=== PATIENT | female | born 1985 | race Caucasian/White ===

== ENCOUNTER 2017-02-22 16:07 | Emergency (ER) | payer MEDICAID ==
[~2017-02-22] VITALS: Ht 149.9 cm; Wt 90.5 kg
[~2017-02-22 16:07] MED LIST: BIRTH CONTROL PO; DSS100 PO
[2017-02-22] MEDS ORDERED: ALBUTEROL SULFATE 2.5 MG/0.5 ML NEB SOLUTION NEB ONE (16:15)
[2017-02-22 19:51] VITALS: BP 127/73
== END 2017-02-22 19:52 | disposition home or self-care (01) ==
LOC: EMS 16:08
DX: J45.909 Unspecified asthma, uncomplicated (principal)
CPT/HCPCS: 71010; 93005; 94640; 99284; J7613

== ENCOUNTER 2017-05-19 17:26 | Emergency (ER) | payer MEDICAID ==
[~2017-05-19] VITALS: Ht 154.9 cm; Wt 81.8 kg
[2017-05-19] MEDS ORDERED: LORA10TA7 PO (17:53)
[2017-05-19] MEDS ORDERED: PredniSONE 20 MG TABLET PO ONE (19:00)
[2017-05-19] MEDS ORDERED: DiphenhydrAMINE HCL 50 MG/ML VIAL IM ONE (19:00)
[2017-05-19 19:22] VITALS: BP 122/79
== END 2017-05-19 19:22 | disposition home or self-care (01) ==
LOC: EMS 17:31
DX: L23.9 Allergic contact dermatitis, unspecified cause (principal)
CPT/HCPCS: 96372; 99283; J1200; J7512

== ENCOUNTER 2017-12-26 19:54 | Emergency (ER) | payer MEDICAID ==
[~2017-12-26] VITALS: Ht 144.8 cm; Wt 85.0 kg
[~2017-12-26 19:54] MED LIST changes: -BIRTH CONTROL PO; -DSS100 PO; +LORA10TA7 PO
[2017-12-26 20:25] VITALS: BP 157/94
== END 2017-12-26 21:49 | disposition left against medical advice (07) ==
LOC: EMS 19:59
DX: N93.9 Abnormal uterine and vaginal bleeding, unspecified (principal); Z53.21 Procedure and treatment not carried out due to patient leaving prior to being seen by health care provider

== ENCOUNTER 2018-03-14 18:35 | Emergency (ER) | payer MEDICAID ==
[~2018-03-14] VITALS: Ht 142.2 cm; Wt 83.2 kg
[2018-03-14] MEDS ORDERED: SULFAMETHOX/TRIMETH DS 800-160 MG/TABLET PO ONE (21:15)
[2018-03-14] MEDS ORDERED: TraMADol HCL 50 MG TABLET PO ONE (21:30)
[2018-03-14 22:28] VITALS: BP 133/79
== END 2018-03-14 22:29 | disposition home or self-care (01) ==
LOC: EMS 18:36
DX: N76.0 Acute vaginitis (principal); R03.0 Elevated blood-pressure reading, without diagnosis of hypertension; Z87.442 Personal history of urinary calculi
CPT/HCPCS: 99283

== ENCOUNTER 2018-03-30 17:08 | Emergency (ER) | payer MEDICAID ==
[~2018-03-30] VITALS: Ht 144.8 cm; Wt 83.0 kg
[2018-03-30] MEDS ORDERED: ALBU8HFA IH (17:23)
[2018-03-30] MEDS ORDERED: METH4TAB16 PO (17:23)
[2018-03-30] MEDS ORDERED: ACETAMINOPHEN 500 MG TABLET PO ONE (18:00)
[2018-03-30] MEDS ORDERED: IBUPROFEN 600 MG TABLET PO ONE (18:00)
[2018-03-30] MEDS ORDERED: AMOX TR/POT CLAV 875 MG/125 MG TABLET PO ONE (18:00)
[2018-03-30 20:17] VITALS: BP 127/71
== END 2018-03-30 20:19 | disposition home or self-care (01) ==
LOC: EMS 17:09
DX: H66.93 Otitis media, unspecified, bilateral (principal)
CPT/HCPCS: 99284

== ENCOUNTER 2018-07-18 19:11 | Emergency (ER) | payer MEDICAID ==
[~2018-07-18] VITALS: Ht 142.2 cm; Wt 80.0 kg
[~2018-07-18 19:11] MED LIST changes: +ALBU8HFA IH; -LORA10TA7 PO; +METH4TAB16 PO
[2018-07-18] MEDS ORDERED: SULF1TAB3 PO (19:48)
[2018-07-18 19:59] LABS: GLUCOSE,POINT OF CARE 434 MG/DL (70-110)
[2018-07-18 21:01] LABS: APPEARANCE,URINE CLEAR (CLEAR); BILIRUBIN,URINE NEGATIVE (NEGATIVE); GLUCOSE, URINE (UA) >=1000 mg/dL (NEGATIVE); KETONES,URINE NEGATIVE (NEGATIVE); LEUKOCYTE ESTERASE ,URINE NEGATIVE (NEGATIVE); NITRATE,URINE NEGATIVE (NEGATIVE); OCCULT BLOOD,URINE NEGATIVE (NEGATIVE); PROTEIN,URINE NEGATIVE (NEGATIVE); UROBILINOGEN,URINE 0.2 mg/dL (<=1.0)
[2018-07-18 21:07] LABS: BACTERIA,URINE Rare /HPF (None Seen); SQUAMOUS EPITHELIAL CELL,UR Few /LPF (None Seen)
[2018-07-18] MEDS: SODIUM CHLORIDE 0.9% 1,000 ML IV ONE ×2 (21:08→22:20)
[2018-07-18 21:53] LABS: GLUCOSE,POINT OF CARE 282 MG/DL (70-110)
[2018-07-18] MEDS: MetFORMIN HCL 500 MG TABLET PO ONE (22:20)
[2018-07-18 23:19] LABS: GLUCOSE,POINT OF CARE 282 MG/DL (70-110)
[2018-07-18] MEDS: INSULIN REGULAR, HUMAN 100 UNITS/ML IVP ONE (23:29)
[2018-07-19 00:04] LABS: GLUCOSE,POINT OF CARE 254 MG/DL (70-110)
[2018-07-19 00:05] VITALS: BP 130/85
== END 2018-07-19 00:09 | disposition home or self-care (01) ==
LOC: EMS 19:14
DX: N76.4 Abscess of vulva (principal); E11.65 Type 2 diabetes mellitus with hyperglycemia
CPT/HCPCS: 81001; 82962; 84703; 96361; 96374; 99284; J1815; J7030

== ENCOUNTER 2018-08-16 19:08 | Emergency (ER) | payer MEDICAID ==
[~2018-08-16] VITALS: Ht 144.8 cm; Wt 80.9 kg
[~2018-08-16 19:08] MED LIST changes: -METH4TAB16 PO; +SULF1TAB3 PO
[2018-08-16] MEDS ORDERED: METF-960 PO (19:25)
[2018-08-16 19:28] LABS: GLUCOSE,POINT OF CARE 157 MG/DL (70-110)
[2018-08-16] MEDS ORDERED: DEPOP150I IM (19:28)
[2018-08-16 19:53] LABS: APPEARANCE,URINE CLEAR (CLEAR); BILIRUBIN,URINE NEGATIVE (NEGATIVE); GLUCOSE, URINE (UA) NEGATIVE (NEGATIVE); KETONES,URINE NEGATIVE (NEGATIVE); LEUKOCYTE ESTERASE ,URINE SMALL (NEGATIVE); NITRATE,URINE NEGATIVE (NEGATIVE); OCCULT BLOOD,URINE NEGATIVE (NEGATIVE); PROTEIN,URINE NEGATIVE (NEGATIVE)
[2018-08-16] MEDS ORDERED: BARIUM SULFATE 0.1% SUSPENSION 450 ML BOTTLE PO ONE (20:15)
[2018-08-16 20:21] LABS: RBC,URINE None Seen /HPF (0-2)
[2018-08-16 20:22] LABS: BACTERIA,URINE Few /HPF (None Seen); SQUAMOUS EPITHELIAL CELL,UR Few /LPF (None Seen)
[2018-08-16] MEDS ORDERED: CEPHALEXIN MONOHYDRATE 500 MG CAPSULE PO ONE (20:45)
[2018-08-16 20:48] VITALS: BP 130/80
== END 2018-08-16 20:49 | disposition home or self-care (01) ==
LOC: EMS 19:09
DX: N39.0 Urinary tract infection, site not specified (principal); B37.3 Candidiasis of vulva and vagina; E11.65 Type 2 diabetes mellitus with hyperglycemia; Z86.61 Personal history of infections of the central nervous system; Z79.4 Long term (current) use of insulin; Z79.899 Other long term (current) drug therapy; Z98.890 Other specified postprocedural states
CPT/HCPCS: 87086; 99284

== ENCOUNTER 2018-12-19 16:10 | Emergency (ER) | payer MEDICAID ==
[~2018-12-19] VITALS: Ht 162.6 cm; Wt 86.4 kg
[~2018-12-19 16:10] MED LIST changes: +DEPOP150I IM; +METF-960 PO; -SULF1TAB3 PO
[2018-12-19 16:44] LABS: GLUCOSE,POINT OF CARE 151 MG/DL (70-110)
[2018-12-19] MEDS ORDERED: KETOROLAC TROMETHAMINE 30 MG/ML VIAL IM ONE (19:30)
[2018-12-19] MEDS ORDERED: OXYMETAZOLINE HCL 0.05% 15 ML NASAL SPRAY NASAL ONE (19:45)
[2018-12-19] MEDS ORDERED: ALBUTEROL SULFATE HFA 90 MCG/PUFF 8 GM INHALER IH ONE ×2 (19:45→21:15)
[2018-12-19] MEDS ORDERED: BENZONATATE 100 MG CAPSULE PO ONE (19:45)
[2018-12-19 20:18] LABS: BASOPHILS % (AUTO) 0.8 % (0.0-2.0); EOSINOPHILS % (AUTO) 3.4 % (1.0-6.0); HEMATOCRIT 43.7 % (36-46); LYMPHOCYTES # (AUTO) 3.4 K/uL (1.0-4.8); MEAN CORPUSCULAR HEMOGLOBIN 30.4 pg (26.0-34.0); MEAN CORPUSCULAR HGB CONC 34.4 G/dL (31.0-37.0); MEAN CORPUSCULAR VOLUME 88 fL (80-100); MONOCYTES # (AUTO) 1.3 K/uL (0.1-1.0); MONOCYTES % (AUTO) 9.8 % (2.0-9.0); NEUTROPHILS # (AUTO) 7.8 K/uL (1.8-7.7); PLATELET COUNT (AUTO) 347 K/uL (150-450); RED BLOOD CELL COUNT(AUTO) 4.94 MIL/uL (4.00-5.20); RED CELL DISTRIBUTION WIDTH 12.5 % (11.5-14.5)
[2018-12-19 20:25] LABS: ANION GAP 10 mmol/L (8-16); CALCIUM, TOTAL 8.9 mg/dL (8.8-10.5); CARBON DIOXIDE 27 mmol/L (22-29); CHLORIDE 101 mmol/L (98-107); CREATININE 0.58 mg/dL (0.60-1.30); GLOMERULAR FILTR. RATE CALC > 60 mL/min (>60); GLUCOSE,RANDOM 98 mg/dL (70-110); POTASSIUM 3.6 mmol/L (3.5-5.1); SODIUM SERUM 138 mmol/L (136-145); UREA NITROGEN, BLOOD 12 mg/dL (7-18)
[2018-12-19 20:31] LABS: ALANINE AMINOTRANSFERASE 34 U/L (12-78); ALBUMIN 3.6 g/dL (3.4-5.0); ALKALINE PHOSPHATASE 114 U/L (46-116); ASPARTATE AMINOTRANSFERASE 21 U/L (15-37); BILIRUBIN,TOTAL 0.3 mg/dL (0.1-1.0); TOTAL PROTEIN, SERUM 7.4 g/dL (6.4-8.2)
[2018-12-19 21:04] VITALS: BP 111/64
== END 2018-12-19 21:34 | disposition home or self-care (01) ==
LOC: EMS 16:10
DX: J40 Bronchitis, not specified as acute or chronic (principal); R51 Headache; E11.9 Type 2 diabetes mellitus without complications; Z79.84 Long term (current) use of oral hypoglycemic drugs
CPT/HCPCS: 36415; 71046; 80053; 81025; 82962; 84484; 85025; 93005; 94640; 96372; 99284; J1885; J3535

== ENCOUNTER 2019-03-13 10:16 | Emergency (ER) | payer MEDICAID ==
[~2019-03-13] VITALS: Ht 142.2 cm; Wt 85.0 kg
[2019-03-13 10:30] LABS: GLUCOSE,POINT OF CARE 152 MG/DL (70-110)
[2019-03-13 11:46] VITALS: BP 127/69
== END 2019-03-13 11:46 | disposition home or self-care (01) ==
LOC: EMS 10:16
DX: L02.214 Cutaneous abscess of groin (principal); E11.9 Type 2 diabetes mellitus without complications; Z79.84 Long term (current) use of oral hypoglycemic drugs

== ENCOUNTER 2019-08-02 10:14 | Emergency (ER) | payer MEDICAID ==
[~2019-08-02] VITALS: Ht 144.8 cm; Wt 84.1 kg
[2019-08-02] MEDS ORDERED: SODIUM CHLORIDE 0.9% 1,000 ML IV ONE (11:30)
[2019-08-02 11:40] LABS: BASOPHILS % (AUTO) 0.5 % (0.0-2.0); EOSINOPHILS % (AUTO) 0.5 % (1.0-6.0); HEMATOCRIT 43.3 % (36-46); HEMOGLOBIN 14.6 g/dL (12.0-16.0); LYMPHOCYTES # (AUTO) 1.2 K/uL (1.0-4.8); LYMPHOCYTES % (AUTO) 9.1 % (22.0-44.0); MEAN CORPUSCULAR HEMOGLOBIN 30.7 pg (26.0-34.0); MEAN CORPUSCULAR HGB CONC 33.8 G/dL (31.0-37.0); MEAN CORPUSCULAR VOLUME 91 fL (80-100); MONOCYTES # (AUTO) 0.9 K/uL (0.1-1.0); MONOCYTES % (AUTO) 7.1 % (2.0-9.0); NEUTROPHILS # (AUTO) 10.9 K/uL (1.8-7.7); NEUTROPHILS % (AUTO) 82.8 % (40.0-70.0); PLATELET COUNT (AUTO) 278 K/uL (150-450); RED BLOOD CELL COUNT(AUTO) 4.77 MIL/uL (4.00-5.20); RED CELL DISTRIBUTION WIDTH 13.1 % (11.5-14.5)
[2019-08-02 12:10] LABS: ALANINE AMINOTRANSFERASE 19 U/L (12-78); ALBUMIN 3.9 g/dL (3.4-5.0); ALKALINE PHOSPHATASE 112 U/L (46-116); ANION GAP 12 mmol/L (8-16); ASPARTATE AMINOTRANSFERASE 15 U/L (15-37); BILIRUBIN,TOTAL 0.5 mg/dL (0.1-1.0); CARBON DIOXIDE 24 mmol/L (22-29); CHLORIDE 102 mmol/L (98-107); GLOMERULAR FILTR. RATE CALC > 60 mL/min (>60); GLUCOSE,RANDOM 172 mg/dL (70-110); HCG,QUANTITATIVE < 1 mIU/mL (0-6); POTASSIUM 3.3 mmol/L (3.5-5.1); SODIUM SERUM 138 mmol/L (136-145); TOTAL PROTEIN, SERUM 7.4 g/dL (6.4-8.2)
[2019-08-02 12:25] LABS: APPEARANCE,URINE CLEAR (CLEAR); BILIRUBIN,URINE NEGATIVE (NEGATIVE); GLUCOSE, URINE (UA) 500 mg/dL (NEGATIVE); KETONES,URINE NEGATIVE (NEGATIVE); LEUKOCYTE ESTERASE ,URINE NEGATIVE (NEGATIVE); NITRATE,URINE NEGATIVE (NEGATIVE); OCCULT BLOOD,URINE TRACE (NEGATIVE); PROTEIN,URINE NEGATIVE (NEGATIVE)
[2019-08-02 12:35] LABS: BACTERIA,URINE None Seen /HPF (None Seen); SQUAMOUS EPITHELIAL CELL,UR Few /LPF (None Seen); WBC,URINE 0-2 /HPF (0-5)
[2019-08-02 12:38] LABS: UREA NITROGEN, BLOOD 6 mg/dL (7-18)
[2019-08-02 12:49] LABS: INFLUENZA TYPE A NEGATIVE FOR TYPE A (NEGATIVE); INFLUENZA TYPE B NEGATIVE FOR TYPE B (NEGATIVE); RAPID GROUP A STREP POSITIVE (NEGATIVE)
[2019-08-02] MEDS ORDERED: ACYCLOVIR IV ONE (13:00)
[2019-08-02] MEDS ORDERED: DEXTROSE 5% IV ONE (13:00)
[2019-08-02] MEDS ORDERED: CefTRIAXone SODIUM 2 GM in DEXTROSE 5%-WATER 50 ML IV ONE (13:00)
[2019-08-02] MEDS ORDERED: VANCOMYCIN HCL 1.5 GM in DEXTROSE 5%-WATER 250 ML IV ONE (13:00)
[2019-08-02] MEDS ORDERED: WATER IV ONE (13:00)
[2019-08-02] MEDS ORDERED: MORPHINE SULFATE 4 MG/ML SYRINGE IVP ONE (13:00)
[2019-08-02 14:41] LABS: GLUCOSE,POINT OF CARE 98 MG/DL (70-110)
[2019-08-02 14:59] LABS: GLUCOSE, CSF 85 mg/dL (50-80); TOTAL PROTEIN, CSF 31 mg/dL (15-45)
[2019-08-02 16:25] LABS: APPEARANCE,CSF CLEAR (CLEAR); COLOR,CSF COLORLESS (COLORLESS); CSF TUBE NUMBER 1; LYMPHOCYTES1,CSF 92 %; MONOCYTES1,CSF 5 %; NEUTROPHILS1,CSF 3 %
[2019-08-02 16:26] LABS: APPEARANCE2,CSF CLEAR (CLEAR); COLOR2,CSF COLORLESS (COLORLESS); CSF 2ND TUBE NUMBER 4; LYMPHOCYTES2,CSF 81 %; MONOCYTES2,CSF 19 %; NEUTROPHILS2,CSF 0 %; OTHER CELLS,CSF 0; OTHER CELLS,CSF 2ND 0
[2019-08-02 18:15] VITALS: BP 124/76
[2019-08-10 08:06] LABS: RUBEOLA (MEASLES) IGG CSF <5.0 AU/mL (<=16.4); RUBEOLA (MEASLES) IGM CSF 0.32 AU (0.00-0.79); WEST NILE VIRUS IGG CSF 0.07 IV (<=1.29)
== END 2019-08-02 18:29 | disposition home or self-care (01) ==
LOC: EMS 10:15
DX: J02.0 Streptococcal pharyngitis (principal); R51 Headache; R11.2 Nausea with vomiting, unspecified; J45.909 Unspecified asthma, uncomplicated; E11.9 Type 2 diabetes mellitus without complications; Z79.84 Long term (current) use of oral hypoglycemic drugs
CPT/HCPCS: 36415; 62270; 70450; 80053; 81001; 82945; 82962; 83605; 84157; 84702; 85025; 86694; 86735; 86765; 86787; 86788; 86789; 87040; 87070; 87205; 87430; 87529; 87804; 89051; 96361; 96365; 96366; 96367; 96375; 99285; J0133; J0696; J2270; J3370; J7060 ×3

== ENCOUNTER 2019-11-25 14:30 | Emergency (ER) | payer MEDICAID ==
[~2019-11-25] VITALS: Ht 137.2 cm; Wt 86.4 kg
[~2019-11-25 14:30] MED LIST changes: -ALBU8HFA IH
[2019-11-25 15:06] LABS: GLUCOSE,POINT OF CARE 170 MG/DL (70-110)
[2019-11-25 16:27] LABS: INFLUENZA TYPE A POSITIVE FOR TYPE A (NEGATIVE); INFLUENZA TYPE B NEGATIVE FOR TYPE B (NEGATIVE)
[2019-11-25 18:00] VITALS: BP 127/81
== END 2019-11-25 18:40 | disposition home or self-care (01) ==
LOC: EMS 14:31
DX: J10.1 Influenza due to other identified influenza virus with other respiratory manifestations (principal); M79.10 Myalgia, unspecified site; J45.909 Unspecified asthma, uncomplicated; E11.9 Type 2 diabetes mellitus without complications; Z79.84 Long term (current) use of oral hypoglycemic drugs
CPT/HCPCS: 87804

== ENCOUNTER 2020-10-10 17:02 | Emergency (ER) | payer MEDICAID ==
[~2020-10-10] VITALS: Ht 142.2 cm; Wt 84.1 kg
[2020-10-10] MEDS ORDERED: METF-960 PO (17:08)
[2020-10-10] MEDS ORDERED: IBUP-1506 PO (17:08)
[2020-10-10 19:15] VITALS: BP 131/85
== END 2020-10-10 19:30 | disposition home or self-care (01) ==
LOC: EMS 17:02
DX: M25.562 Pain in left knee (principal); J45.909 Unspecified asthma, uncomplicated; E11.9 Type 2 diabetes mellitus without complications; F12.90 Cannabis use, unspecified, uncomplicated; Z79.84 Long term (current) use of oral hypoglycemic drugs

== ENCOUNTER 2021-07-06 16:33 | Emergency (ER) | payer MEDICAID ==
[~2021-07-06] VITALS: Ht 157.5 cm; Wt 72.7 kg
[~2021-07-06 16:33] MED LIST changes: +IBUP-1506 PO
[2021-07-06 19:35] LABS: BASOPHILS % (AUTO) 0.5 % (0.0-2.0); EOSINOPHILS % (AUTO) 1.6 % (1.0-6.0); HEMATOCRIT 44.7 % (36-46); HEMOGLOBIN 14.9 g/dL (12.0-16.0); LYMPHOCYTES # (AUTO) 1.6 K/uL (1.0-4.8); LYMPHOCYTES % (AUTO) 25.6 % (22.0-44.0); MEAN CORPUSCULAR HEMOGLOBIN 30.7 pg (26.0-34.0); MEAN CORPUSCULAR HGB CONC 33.5 G/dL (31.0-37.0); MEAN CORPUSCULAR VOLUME 92 fL (80-100); MONOCYTES # (AUTO) 0.6 K/uL (0.1-1.0); MONOCYTES % (AUTO) 9.9 % (2.0-9.0); NEUTROPHILS # (AUTO) 3.9 K/uL (1.8-7.7); NEUTROPHILS % (AUTO) 62.4 % (40.0-70.0); PLATELET COUNT (AUTO) 266 K/uL (150-450); RED BLOOD CELL COUNT(AUTO) 4.87 MIL/uL (4.00-5.20); RED CELL DISTRIBUTION WIDTH 12.9 % (11.5-14.5)
[2021-07-06 19:50] LABS: ANION GAP 6 mmol/L (8-16); CALCIUM, TOTAL 8.4 mg/dL (8.8-10.5); CARBON DIOXIDE 26 mmol/L (22-29); CHLORIDE 106 mmol/L (98-107); GLOMERULAR FILTR. RATE CALC > 60 mL/min (>60); GLUCOSE,RANDOM 117 mg/dL (70-110); POTASSIUM 3.7 mmol/L (3.5-5.1); SODIUM SERUM 138 mmol/L (136-145); UREA NITROGEN, BLOOD 6 mg/dL (7-18)
[2021-07-06 20:02] LABS: ALANINE AMINOTRANSFERASE 30 U/L (12-78); ALBUMIN 3.5 g/dL (3.4-5.0); ALKALINE PHOSPHATASE 97 U/L (46-116); ASPARTATE AMINOTRANSFERASE 18 U/L (15-37); BILIRUBIN,TOTAL 0.2 mg/dL (0.1-1.0); HCG,QUANTITATIVE < 1 mIU/mL (0-6); LIPASE 81 U/L (73-393); TOTAL PROTEIN, SERUM 7.2 g/dL (6.4-8.2)
[2021-07-06 20:14] LABS: APPEARANCE,URINE CLEAR (CLEAR); BILIRUBIN,URINE NEGATIVE (NEGATIVE); GLUCOSE, URINE (UA) NEGATIVE (NEGATIVE); KETONES,URINE NEGATIVE (NEGATIVE); LEUKOCYTE ESTERASE ,URINE NEGATIVE (NEGATIVE); NITRATE,URINE NEGATIVE (NEGATIVE); OCCULT BLOOD,URINE MODERATE (NEGATIVE); PROTEIN,URINE NEGATIVE (NEGATIVE); UROBILINOGEN,URINE 0.2 mg/dL (<=1.0)
[2021-07-06 20:26] LABS: BACTERIA,URINE None Seen /HPF (None Seen); SQUAMOUS EPITHELIAL CELL,UR Few /LPF (None Seen); WBC,URINE 0-2 /HPF (0-5)
[2021-07-06 20:45] VITALS: BP 116/75
== END 2021-07-06 22:36 | disposition home or self-care (01) ==
LOC: EMS 16:33
DX: S39.012A Strain of muscle, fascia and tendon of lower back, initial encounter (principal); R10.9 Unspecified abdominal pain; E11.9 Type 2 diabetes mellitus without complications; J45.909 Unspecified asthma, uncomplicated; Z87.442 Personal history of urinary calculi; Z87.440 Personal history of urinary (tract) infections; Z79.84 Long term (current) use of oral hypoglycemic drugs; X58.XXXA Exposure to other specified factors, initial encounter; Y93.89 Activity, other specified; Y92.89 Other specified places as the place of occurrence of the external cause; Y99.8 Other external cause status
CPT/HCPCS: 74176; 80053; 81001; 83690; 84702; 85025; 99284

== ENCOUNTER 2021-07-22 08:42 | Emergency (ER) | payer MEDICAID ==
[~2021-07-22] VITALS: Ht 152.4 cm; Wt 81.0 kg
[2021-07-22 09:32] LABS: COVID AG,FIA SOURCE NASOPHARYNGEAL
[2021-07-22 09:37] LABS: BASOPHILS % (AUTO) 0.5 % (0.0-2.0); EOSINOPHILS % (AUTO) 2.7 % (1.0-6.0); HEMATOCRIT 42.5 % (36-46); HEMOGLOBIN 14.3 g/dL (12.0-16.0); LYMPHOCYTES # (AUTO) 1.5 K/uL (1.0-4.8); LYMPHOCYTES % (AUTO) 28.7 % (22.0-44.0); MEAN CORPUSCULAR HEMOGLOBIN 30.6 pg (26.0-34.0); MEAN CORPUSCULAR HGB CONC 33.6 G/dL (31.0-37.0); MEAN CORPUSCULAR VOLUME 91 fL (80-100); MONOCYTES # (AUTO) 0.4 K/uL (0.1-1.0); MONOCYTES % (AUTO) 7.9 % (2.0-9.0); NEUTROPHILS # (AUTO) 3.2 K/uL (1.8-7.7); NEUTROPHILS % (AUTO) 60.2 % (40.0-70.0); PLATELET COUNT (AUTO) 321 K/uL (150-450); RED BLOOD CELL COUNT(AUTO) 4.66 MIL/uL (4.00-5.20); RED CELL DISTRIBUTION WIDTH 13.1 % (11.5-14.5)
[2021-07-22 09:44] LABS: ANION GAP 8 mmol/L (8-16); CALCIUM, TOTAL 8.6 mg/dL (8.8-10.5); CARBON DIOXIDE 27 mmol/L (22-29); CHLORIDE 105 mmol/L (98-107); CREATININE 0.65 mg/dL (0.60-1.30); GLOMERULAR FILTR. RATE CALC > 60 mL/min (>60); GLUCOSE,RANDOM 171 mg/dL (70-110); POTASSIUM 3.6 mmol/L (3.5-5.1); SODIUM SERUM 140 mmol/L (136-145); UREA NITROGEN, BLOOD 6 mg/dL (7-18)
[2021-07-22] MEDS ORDERED: BENZONATATE 100 MG CAPSULE PO ONE (09:45)
[2021-07-22] MEDS ORDERED: ACETAMINOPHEN 500 MG TABLET PO ONE (09:45)
[2021-07-22 09:49] LABS: B-TYPE NATRIURETIC PEPTIDE 8 pg/mL (0-100)
[2021-07-22 10:22] LABS: ALANINE AMINOTRANSFERASE 25 U/L (12-78); ALBUMIN 3.5 g/dL (3.4-5.0); ALKALINE PHOSPHATASE 97 U/L (46-116); ASPARTATE AMINOTRANSFERASE 19 U/L (15-37); BILIRUBIN,TOTAL 0.3 mg/dL (0.1-1.0); CREATINE KINASE, TOTAL ONLY 42 U/L (26-192); HCG,QUANTITATIVE < 1 mIU/mL (0-6); TOTAL PROTEIN, SERUM 7.4 g/dL (6.4-8.2)
[2021-07-22 10:35] LABS: INFLUENZA TYPE A NEGATIVE FOR TYPE A (NEGATIVE); INFLUENZA TYPE B NEGATIVE FOR TYPE B (NEGATIVE)
[2021-07-22 10:45] VITALS: BP 141/78
== END 2021-07-22 11:01 | disposition home or self-care (01) ==
LOC: EMS 08:44
DX: U07.1 COVID-19 (principal); J45.909 Unspecified asthma, uncomplicated; E11.9 Type 2 diabetes mellitus without complications; F12.90 Cannabis use, unspecified, uncomplicated; Z79.84 Long term (current) use of oral hypoglycemic drugs
CPT/HCPCS: 71045; 80053; 82550; 82962; 83880; 84484; 84702; 85025; 87804; 93005; 99285; 36415-L1; 36415-TC

== ENCOUNTER 2022-01-20 16:15 | Emergency (ER) | payer MEDICAID ==
[~2022-01-20] VITALS: Ht 154.9 cm; Wt 79.5 kg
[~2022-01-20 16:15] MED LIST changes: +METF-1211 PO; -METF-960 PO
[2022-01-20] MEDS ORDERED: KETOROLAC TROMETHAMINE 30 MG/ML VIAL IM ONE (18:30)
[2022-01-20 21:05] VITALS: BP 143/85
[2022-01-20] MEDS ORDERED: METH-659 PO (21:05)
== END 2022-01-20 21:28 | disposition home or self-care (01) ==
LOC: EMS 16:31
DX: M54.2 Cervicalgia (principal); R20.0 Anesthesia of skin
CPT/HCPCS: 72125; 96372; 99284; J1885

== ENCOUNTER 2022-07-16 16:40 | Emergency (ER) | payer MEDICAID ==
[~2022-07-16 16:40] MED LIST changes: -DEPOP150I IM; +MEDR150V13 IM; +METH-659 PO
== END 2022-07-16 16:46 | disposition left against medical advice (07) ==
LOC: EMS 16:40
DX: Z53.21 Procedure and treatment not carried out due to patient leaving prior to being seen by health care provider (principal)

== ENCOUNTER 2023-12-16 13:57 | Emergency (ER) | payer MEDICAID, OTHER ==
[~2023-12-16] VITALS: Ht 139.7 cm; Wt 81.8 kg
[2023-12-16 14:01] VITALS: TEMP 98.2
[2023-12-16 14:24] LABS: COVID AG,FIA SOURCE NASAL SWAB
[2023-12-16 14:36] LABS: BASOPHILS % (AUTO) 0.2 % (0.0-2.0); HEMATOCRIT 43.5 % (36-46); HEMOGLOBIN 14.7 g/dL (12.0-16.0); LYMPHOCYTES # (AUTO) 1.2 K/uL (1.0-4.8); LYMPHOCYTES % (AUTO) 12.9 % (22.0-44.0); MEAN CORPUSCULAR HEMOGLOBIN 31.5 pg (26.0-34.0); MEAN CORPUSCULAR HGB CONC 33.9 G/dL (31.0-37.0); MEAN CORPUSCULAR VOLUME 93 fL (80-100); MONOCYTES # (AUTO) 0.7 K/uL (0.1-1.0); MONOCYTES % (AUTO) 7.7 % (2.0-9.0); NEUTROPHILS # (AUTO) 7.3 K/uL (1.8-7.7); NEUTROPHILS % (AUTO) 77.2 % (40.0-70.0); PLATELET COUNT (AUTO) 305 K/uL (150-450); RED BLOOD CELL COUNT(AUTO) 4.69 MIL/uL (4.00-5.20); WHITE BLOOD COUNT (AUTO) 9.5 K/uL (4.5-11.0)
[2023-12-16 14:40] LABS: APPEARANCE,URINE CLEAR (CLEAR); BILIRUBIN,URINE NEGATIVE (NEGATIVE); COLOR,URINE YELLOW (YELLOW); GLUCOSE, URINE (UA) NEGATIVE (NEGATIVE); KETONES,URINE NEGATIVE (NEGATIVE); LEUKOCYTE ESTERASE ,URINE NEGATIVE (NEGATIVE); NITRATE,URINE NEGATIVE (NEGATIVE); OCCULT BLOOD,URINE MODERATE (NEGATIVE); PH,URINE 5.5 (5.0-8.0); PROTEIN,URINE TRACE mg/dL (NEGATIVE); SPECIFIC GRAVITIY, URINE 1.028 (1.003-1.030); UROBILINOGEN,URINE <=1.0 mg/dL (<=1.0)
[2023-12-16 14:43] LABS: SARS-COV2 (COVID) ANTIGEN,FIA Negative (Negative)
[2023-12-16 14:45] LABS: INFLUENZA TYPE A NEGATIVE FOR TYPE A (NEGATIVE); INFLUENZA TYPE B NEGATIVE FOR TYPE B (NEGATIVE)
[2023-12-16 14:54] LABS: BACTERIA,URINE None Seen /HPF (None Seen); SQUAMOUS EPITHELIAL CELL,UR Few /LPF (None Seen); WBC,URINE None Seen /HPF (0-5)
[2023-12-16 14:55] LABS: ANION GAP 8 mmol/L (8-16); CALCIUM, TOTAL 8.8 mg/dL (8.8-10.5); CARBON DIOXIDE 27 mmol/L (22-29); CHLORIDE 102 mmol/L (98-107); GLOMERULAR FILTR. RATE CALC > 60 mL/min (>60); GLUCOSE,RANDOM 86 mg/dL (70-110); POTASSIUM 3.7 mmol/L (3.5-5.1); SODIUM SERUM 137 mmol/L (136-145); UREA NITROGEN, BLOOD 8 mg/dL (7-18)
[2023-12-16 15:07] LABS: ALANINE AMINOTRANSFERASE 21 U/L (12-78); ALKALINE PHOSPHATASE 89 U/L (46-116); ASPARTATE AMINOTRANSFERASE 15 U/L (15-37); BILIRUBIN,TOTAL 0.6 mg/dL (0.1-1.0); HCG,QUANTITATIVE < 1 mIU/mL (0-6); LIPASE 18 U/L (16-77); TOTAL PROTEIN, SERUM 7.4 g/dL (6.4-8.2)
[2023-12-16] MEDS: METOCLOPRAMIDE HCL 5 MG/ML 2 ML VIAL IVP ONE (16:41)
[2023-12-16 16:46] VITALS: BP 121/77; PULSE 95; RESP 17
== END 2023-12-16 18:59 | disposition home or self-care (01) ==
LOC: EMS 13:57
DX: A08.4 Viral intestinal infection, unspecified (principal); F12.90 Cannabis use, unspecified, uncomplicated; J45.909 Unspecified asthma, uncomplicated; E11.9 Type 2 diabetes mellitus without complications; Z98.890 Other specified postprocedural states; Z90.49 Acquired absence of other specified parts of digestive tract; Z20.822 Contact with and (suspected) exposure to COVID-19
CPT/HCPCS: 99285; 96374; 76705; 87426; 80053; 81001; 83690; 84702; 85025; 87804; 36415; J2765